=== PATIENT | female | born 1990 ===

== ENCOUNTER 2021-06-13 18:46 | Inpatient (IN) | payer OTHER ==
[2021-06-14 08:18] LABS: Basophils % (Auto) 0.3 % (0.0-1.8); Eosinophils # (Auto) 0.2 K/mm3 (0.0-0.4); Eosinophils % (Auto) 1.7 % (0.0-4.3); Hematocrit 34.9 % (30.3-42.9); Hemoglobin 11.9 gm/dl (10.1-14.3); Lymphocytes # (Auto) 2.3 K/mm3 (1.2-5.4); Lymphocytes % (Auto) 22.9 % (13.4-35.0); Mean Corpuscular HGB Conc 34 % (30-34); Mean Corpuscular Volume 88 fl (79-97); Monocytes # (Auto) 0.6 K/mm3 (0.0-0.8); Monocytes % (Auto) 5.8 % (0.0-7.3); Platelet Count 343 K/mm3 (140-440); Red Blood Count 3.96 M/mm3 (3.65-5.03)
--- NOTE | 2021-06-14 08:20 | Emergency Department Report ---
HPI - General Chief Complaint: High BP Time Seen by Provider: 06/14/21 08:17 - HPI HPI: 31-year-old -Luxembourger female presents to the emergency department with a complaint of elevated blood pressure, dizziness, and concerns for preeclampsia. She is currently [address] Judd. Yesterday, the patient was taking a shower when she got very dizzy and felt like she was going to pass out. She checked her blood pressure at that time and it was about 189/90. Patient also complains of a mild generalized headache. It was slightly worse prior to presentation but she took some Tylenol and that improved. The dizziness has since resolved. The patient had some lower extremity swelling yesterday but that also has improved. She denies any chest pain, shortness of breath, vision change, slurred speech, numbness or paresthesias. She has a history of -induced hypertension for which she is on labetalol and taking it compliantly. She says that she does have a history of preeclampsia from a previous in which she gave at 35 weeks. After the patient had the near syncope and hypertension yesterday, she called Dr. Judd's nurse line and was told to come to the emergency department for evaluation. ED Past Medical Hx - Past Medical History Previous Medical History?: Yes Hx Hypertension: Yes Hx Diabetes: Yes - Surgical History Past Surgical History?: Yes Additional Surgical History: ED Review of Systems ROS: Stated complaint: 19WKS /HPB Other details as noted in HPI Comment: All other systems reviewed and negative Constitutional: denies: chills, fever Eyes: denies: eye pain, vision change ENT: denies: ear pain, throat pain Respiratory: denies: cough, shortness of breath Cardiovascular: edema (Lower extremity, resolved). denies: chest pain, palpitations Gastrointestinal: denies: abdominal pain, vomiting Genitourinary: denies: dysuria, discharge Musculoskeletal: denies: back pain, arthralgia Skin: denies: rash, lesions Neurological: headache, other (Dizziness/lightheadedness). denies: numbness, paresthesias Physical Exam - Physical Exam Vital Signs: Vital Signs 06/13/21 06/14/21 06/14/21 19:09 08:13 08:14 Temperature 99.0 F 98 F Pulse Rate 103 H 95 H Respiratory 18 18 Rate Blood Pressure 142/84 148/97 [Right] O2 Sat by Pulse 97 98 98 Oximetry Physical Exam: GENERAL: The patient is well-developed well-nourished. HENT: Normocephalic. Atraumatic. Patient has moist mucous membranes. EYES: Extraocular motions are intact. No nystagmus. NECK: Supple. Trachea is midline. CHEST/LUNGS: Clear to auscultation. There is no respiratory distress noted. HEART/CARDIOVASCULAR: Regular. There is no tachycardia. There is no murmur. ABDOMEN: Abdomen is soft, nontender. Patient has normal bowel sounds. Obese habitus. SKIN: Skin is warm and dry. NEURO: The patient is awake, alert, and oriented. The patient is cooperative. The patient has no focal neurologic deficits. Normal speech. Cranial nerves II through XII grossly intact. No facial asymmetry. No pronator drift or dysmetria. MUSCULOSKELETAL: There is no tenderness or deformity. There is no limitation range of motion. ED Course Vital Signs 06/13/21 06/14/21 06/14/21 19:09 08:13 08:14 Temperature 99.0 F 98 F Pulse Rate 103 H 95 H Respiratory 18 18 Rate Blood Pressure 142/84 148/97 [Right] O2 Sat by Pulse 97 98 98 Oximetry ED Medical Decision Making - Lab Data Result diagrams: 06/14/21 07:52 06/14/21 07:52 Lab Results 06/14/21 06/14/21 06/14/21 Range/Units 05:16 07:52 07:52 WBC 9.9 (4.5-11.0) K/mm3 RBC 3.96 (3.65-5.03) M/mm3 Hgb 11.9 (10.1-14.3) gm/dl Hct 34.9 (30.3-42.9) % MCV 88 (79-97) fl MCH 30 (28-32) pg MCHC 34 (30-34) % RDW 13.0 L (13.2-15.2) % Plt Count 343 (140-440) K/mm3 Lymph % (Auto) 22.9 (13.4-35.0) % [place] % (Auto) 5.8 (0.0-7.3) % Eos % (Auto) 1.7 (0.0-4.3) % Baso % (Auto) 0.3 (0.0-1.8) % Lymph # (Auto) 2.3 (1.2-5.4) K/mm3 [place] # (Auto) 0.6 (0.0-0.8) K/mm3 Eos # (Auto) 0.2 (0.0-0.4) K/mm3 Baso # (Auto) 0.0 (0.0-0.1) K/mm3 Seg Neutrophils % 69.3 (40.0-70.0) % Seg Neutrophils # 6.9 (1.8-7.7) K/mm3 Sodium 134 L (137-145) mmol/L Potassium 4.2 (3.6-5.0) mmol/L Chloride 99.5 (98-107) mmol/L Carbon Dioxide 24 (22-30) mmol/L Anion Gap 15 mmol/L BUN 6 L (7-17) mg/dL Creatinine 0.4 L (0.6-1.2) mg/dL Estimated GFR > 60 ml/min BUN/Creatinine Ratio 15 % Glucose 110 H (65-100) mg/dL POC Glucose 74 (70-105) mg/dL Calcium 10.2 (8.4-10.2) mg/dL Magnesium 1.90 (1.7-2.3) mg/dL Total Bilirubin < 0.20 (0.1-1.2) mg/dL AST 14 (5-40) units/L ALT 10 (7-56) units/L Alkaline Phosphatase 51 (35-129) units/L Total Protein 7.5 (6.3-8.2) g/dL Albumin 3.9 (3.9-5) g/dL Albumin/Globulin Ratio 1.1 % - Medical Decision Making This patient is 20 weeks and presented with some dizziness/lightheadedness and hypertension. She has a previous history of preeclampsia and has -induced hypertension. Patient's labs have thus far been unremarkable. Patient's vital signs show some very mild hypertension but there is still hypertension despite her being compliant with her labetalol. I spoke with Dr. Ferris, on-call TECHNOLOGY AUDITOR for [employer]IT APPLICATION SUPPORT ANALYST and she has accepted the patient for admission to L&D for further monitoring. Critical Care Time: No Critical care attestation.: If time is entered above; I have spent that time in minutes in the direct care of this critically ill patient, excluding procedure time. ED Disposition Clinical Impression: Preeclampsia Qualifiers: Trimester: second trimester Qualified Code(s): O14.92 - Unspecified pre- eclampsia, second trimester induced hypertension Qualifiers: Trimester: second trimester Qualified Code(s): O13.2 - Gestational [- induced] hypertension without significant proteinuria, second trimester Disposition: 09 ADMITTED INPATIENT Is pt being admited?: Yes Condition: Fair Time of Disposition: 09:21
[2021-06-14 08:32] LABS: Alanine Aminotransferase 10 units/L (7-56); Albumin 3.9 g/dL (3.9-5); Blood Urea Nitrogen 6 mg/dL (7-17); Calcium 10.2 mg/dL (8.4-10.2); Hemolysis Index 4
[2021-06-14 08:35] LABS: BUN/Creatinine Ratio 15
[2021-06-14] MEDS ORDERED: ONDANSETRON 4 MG/2 ML INJ IV PRN (10:00)
[2021-06-14] MEDS ORDERED: ACETAMINOPHEN 325 MG TAB PO PRN (10:00)
[2021-06-14] MEDS ORDERED: DEXTROSE 50% IN WATER (25GM) 50 ML SYRINGE IV PRN (10:00)
[2021-06-14] MEDS ORDERED: LACTATED RINGERS 1,000 ML IV SCH (10:00)
[2021-06-14] MEDS ORDERED: diphenhydrAMINE 25 MG CAP PO PRN (10:00)
[2021-06-14] MEDS: PRENATAL VIT27-FE FUMARATE-FOLIC ACID VIT TAB PO SCH (10:00)
[2021-06-14] MEDS ORDERED: DOCUSATE SODIUM 100 MG CAP PO PRN (10:00)
--- NOTE | 2021-06-14 10:23 | History and Physical Report ---
History of Present Illness Date of examination: 06/14/21 Date of admission: 06/14/21 09:33 Chief complaint: ER HPI: 31-year-old -Citizen Of [place] female presents to the emergency department with a complaint of elevated blood pressure, dizziness, and concerns for preeclampsia. She is currently [address] Judd. Yesterday, the patient was taking a shower when she got very dizzy and felt like she was going to pass out. She checked her blood pressure at that time and it was about 189/90. Patient also complains of a mild generalized headache. It was slightly worse prior to presentation but she took some Tylenol and that improved. The dizziness has since resolved. The patient had some lower extremity swelling yesterday but that also has improved. She denies any chest pain, shortness of breath, vision change, slurred speech, numbness or paresthesias. She has a history of -induced hypertension for which she is on labetalol and taking it compliantly. She says that she does have a history of preeclampsia from a previous in which she gave at 35 weeks. History of present illness: EDC: 11/01/2021 Past History : 3 Term Births: 0 Premature Births: 1 Living Children: 1 Para: 1 Mult. Births: 0 Prev : 1 Prev. attempt? 0 Aborta: 1 Elect. Ab: 1 Spont. Ab: 0 Ectopics: 0 # 1 Delivery date: 2012 Weeks Gestation: 35 Delivery type: Hours of labor: failed IOL Anesthesia type: epidural Delivery location: [facility] Sex: Female weight: 5-0 Name: Yenny Comments: Pt had PreE and GDM with this ; C/S was for failed IOL # 2 Delivery date: 2018 Weeks Gestation: 10 Delivery type: EAB Comments: denies complications Past Medical History: morbid obesity Diabetes dx 2019 on Metformin 500mg TID Gestational Diabetes 2013 Hypertension essential started on Labetalol 200 BID Past Surgical History: 2013 Past Medical History Diabetes: yes Surgery (Non-senior software engineering manager): 2012 Social Hx: Patient is single debut age 16 0r 17. partners. x 2. condoms with one partner. did not get gardisil. Infection History Hx of STD: gonorrhea HIV Risk Eval: no Personal hx. of genital herpes: no Partner hx. of genital herpes: no Rash, Viral, or Febrile illness since last LMP? no Varicella/Chicken Pox Status: Unknown TB Risk: no Genetic History Congenital Heart Defect: Mom: no Dad: unknown Fior Disease: Mom: no Dad: unknown Thalassemia Mom: no Dad: unknown Neural Tube Defect Mom: no Dad: unknown Down's Syndrome Mom: no Dad: unknown Shekhar-Sachs Mom: no Dad: unknown Sickle Cell Disease/Trait Mom: no Dad: unknown Hemophilia Mom: no Dad: unknown Muscular Dystrophy Mom: no Dad: unknown Cystic Fibrosis Mom: no Dad: unknown [place] Chorea Mom: no Dad: unknown Mental Retardation Mom: no Dad: unknown Fragile X Mom: no Dad: unknown Other Genetic/Chromosomal Disorder Mom: no Dad: unknown Child w/other defect Mom: no Dad: unknown Enviromental Exposures Xray Exposure: no Medication, drug, or alcohol use since LMP: no Chemical/Other Exposure: no Exposure to Cat Liter: no Hx of Parvovirus (Fifth Disease): no Occupational Exposure to Children: none Active Medications (reviewed today): RX 1 TABS ( VIT-FE FUMARATE-FA TABS) one po q day LABETALOL HCL 200 MG TABS (LABETALOL HCL) () 1 po bid PROCARE WRIST BP MONITOR DEVICE (BLOOD PRESSURE MONITORING) pt instructed to take BP BID Call with values >160/100 PNV () METFORMIN () Current Allergies (reviewed today): No known allergies Past History Past Medical History: other (see HPI) Past Surgical History: other (see HPI) 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) Family/Genetic History: other (see HPI) Social history: other (see HPI) - Obstetrical History Expected Date of Delivery: 11/01/21 Actual Gestation: 20 Week(s) 0 Day(s) : 3 Para: 1 Hx # Term Pregnancies: 0 Number of Pregnancies: 1 Spontaneous Abortions: 0 Induced : 1 Number of Living Children: 1 Medications and Allergies Allergies Allergy/AdvReac Type Severity Reaction Status Date / Time No Known Allergies Allergy Unverified 06/13/21 19:07 Active Meds: Active Medications Acetaminophen (Acetaminophen 325 Mg Tab) 650 mg PO Q4H PRN PRN Reason: Pain MILD(1-3)/Fever >100.5/CUMMINGS Dextrose (Dextrose 50% In Water (25gm) 50 Ml Syringe) 50 ml IV Q30MIN PRN; Protocol PRN Reason: Hypoglycemia Diphenhydramine HCl (Diphenhydramine 25 Mg Cap) 25 mg PO Q6H PRN PRN Reason: Itching Docusate Sodium (Docusate Sodium 100 Mg Cap) 100 mg PO Q12H PRN PRN Reason: Constipation Lactated Ringer's (Lactated Ringers) 1,000 mls @ 125 mls/hr IV DIRECT LOC Insulin Human Regular (Insulin Regular, Human 100 Units/1 Ml) 0 units SUB-Q Q6H LOC; Protocol Multivitamins/Iron/Calcium ( Lrb70-Dt Fumarate-Folic Acid Vit Tab) 1 each PO QDAY LOC Ondansetron HCl (Ondansetron 4 Mg/2 Ml Inj) 4 mg IV Q6H PRN PRN Reason: Nausea And Vomiting Review of Systems All systems: negative - Vital Signs Vital signs: Vital Signs Temp Pulse Resp BP Pulse Ox 99.0 F 103 H 18 142/84 97 06/13/21 19:09 06/13/21 19:09 06/13/21 19:09 06/13/21 19:09 06/13/21 19:09 Temp Pulse Resp BP Pulse Ox 98 F 95 H 18 148/97 98 06/14/21 08:13 06/14/21 08:13 06/14/21 08:13 06/14/21 08:13 06/14/21 08:14 - Physical Exam Breasts: Positive: deferred Cardiovascular: Regular rate Lungs: Positive: Clear to auscultation, Normal air movement Abdomen: Positive: normal appearance, soft Vagina: Negative: discharge Uterus: Positive: normal size, normal contour. Negative: tender Extremities: Positive: edema (nonpitting) Deep Tendon Reflex Grade: Normal +2 - Obstetrical FHR comments: dopplers ordered qday; pt reports +FM Uterine Contraction Monitor Mode: External Uterine Contraction Pattern: Absent Uterine Tone Measurement Phase: Resting Results Result Diagrams: 06/14/21 07:52 06/14/21 07:52 Abnormal lab results 06/14/21 06/14/21 Range/Units 07:52 07:52 RDW 13.0 L (13.2-15.2) % Sodium 134 L (137-145) mmol/L BUN 6 L (7-17) mg/dL Creatinine 0.4 L (0.6-1.2) mg/dL Glucose 110 H (65-100) mg/dL All other labs normal. AFP screen: negative Tests: (1) Profile I ([id number]) Order Note: Clinical Information: SRC:UR HBsAg Screen Negative Negative *1 RPR Non Reactive Non Reactive *2 Rubella Antibodies, IgG 1.30 index Immune >0.99 *3 Non-immune <0.90 Equivocal 0.90 - 0.99 Immune >0.99 ABO Grouping O *4 Rh Factor Positive *5 Please note: Prior records for this patient's ABO / Rh type are not available for additional verification. Antibody Screen Negative Negative *6 WBC 7.8 x10E3/uL 3.4-10.8 *7 RBC 4.09 x10E6/uL 3.77-5.28 *8 Hemoglobin 12.1 g/dL 11.1-15.9 *9 Hematocrit 37.7 % 34.0-46.6 *10 MCV 92 fL 79-97 *11 MCH 29.6 pg 26.6-33.0 *12 MCHC 32.1 g/dL 31.5-35.7 *13 RDW 12.9 % 11.7-15.4 *14 Platelets 307 x10E3/uL 150-450 *15 Neutrophils 62 % Not Estab. *16 Lymphs 29 % Not Estab. *17 Monocytes 6 % Not Estab. *18 Eos 2 % Not Estab. *19 Basos 1 % Not Estab. *20 ! Immature Cells <No Reported Value> *21 Neutrophils (Absolute) 4.8 x10E3/uL 1.4-7.0 *22 Lymphs (Absolute) 2.3 x10E3/uL 0.7-3.1 *23 Monocytes(Absolute) 0.5 x10E3/uL 0.1-0.9 *24 Eos (Absolute) 0.2 x10E3/uL 0.0-0.4 *25 Baso (Absolute) 0.0 x10E3/uL 0.0-0.2 *26 ! Immature Granulocytes 0 % Not Estab. *27 ! Immature Grans (Abs) 0.0 x10E3/uL 0.0-0.1 *28 ! NRBC <No Reported Value> *29 Hematology Comments: <No Reported Value> *30 Tests: (2) HB Solu + Rflx [facility] ([id number]) Hemoglobin (Hgb) Solubility [A] Positive Negative *31 Verified by repeat analysis Tests: (3) Hgb Fractionation [place] ([id number]) ! Hgb F [H] 3.4 % 0.0-2.0 *32 ! Hgb A [L] 54.5 % 96.4-98.8 *33 ! Hgb A2 3.0 % 1.8-3.2 *34 ! Hgb S [H] 39.1 % 0.0 *35 ! Interpretation: SHIELA *36 Reflex to Hgb Solubility indicated for confirmation. Tests: (4) Hgb Solubility ([id number]) ! Hgb Solubility DUPPRG (X) *37 Duplicate procedure ordered. ! Final Interpretation: SBAS *38 Hemoglobin pattern and concentrations are consistent with sickle cell trait (heterozygous). Suggest clinical and hematologic correlation. Sickle Trait Interpretation Ranges Hgb A 50.0 - 70.0% Hgb S 30.0 - 45.0% Hgb A2 1.8 - 4.0% Tests: (5) HIV Ag/Ab with Reflex ([id number]) HIV Screen 4th Generation wRfx Non Reactive Non Reactive *39 Tests: (6) HCV Ab w/Rflx to Verification ([id number]) ! HCV Ab <0.1 s/co ratio 0.0-0.9 *40 Tests: (7) Comment: ([id number]) ! Comment: SPRCS *41 Non reactive HCV antibody screen is consistent with no HCV infection, unless recent infection is suspected or other evidence exists to indicate HCV infection. Effective April 29, 2021, this panel will be made non-orderable as it no longer meets clinical guidelines for the detection of HCV infection. [facility] offers HCV Antibody with reflex to Quantitative real-time PCR ([id number]) and HCV Antibody with reflex to Qualitative JEREMY ([id number]) which align with current guidelines. Tests: (8) Urine Culture, Routine ([id number]) Urine Culture, Routine Final report *42 Tests: (9) Result ([id number]) ! Result 1 "Result Below..." *43 RESULT: Lactobacillus species 10,000-25,000 colony forming units per mL Susceptibility not normally performed on this organism. Assessment and Plan Pt presents for admission from ED to r/o Pre-eclampsia. DR. Ferris aware. POC d/w pt and all questions and concerns addressed. Pt denies RUQ pain and vision changes, reports recent CUMMINGS resolved with Tylenol. Orders placed in EMR - Patient Problems (1) 20 weeks gestation of Current Visit: Yes Status: Acute Plan to address problem: Doppler FHT's every day (2) Maternal care for scar from previous delivery Current Visit: Yes Status: Acute (3) Type 2 diabetes mellitus during Current Visit: Yes Status: Acute Plan to address problem: Consistent carb diet ordered POC glucose fasting and 2 hours post prandial Sliding scale insulin per protocol Home medications ordered- Humulin N 40 units and Humulin R 22units with breakfast, Humulin N 18 units and Humulin R 18 units with dinner (4) Chronic hypertension affecting Current Visit: Yes Status: Acute Plan to address problem: Perform 24hour urine collection Monitor BP and SSx closely notify provider with any changes in status Strict I&O Obtain IV access and may saline lock if pt tolerating PO Labetalol 200mg BID (5) Sickle cell trait Current Visit: Yes Status: Acute
[2021-06-14 11:05] LABS: Bacteria,Urine 2+ /HPF (Negative); Bilirubin,Urine NEG (Negative); Blood,Urine NEG (Negative); Color,Urine Yellow (Yellow); Hyaline Casts,Urine 1 /LPF; Mucus,Urine FEW /HPF; Protein,Urine <15 mg/dL mg/dL (Negative); Urobilinogen,Urine < 2.0 mg/dL (<2.0)
[2021-06-14] MEDS ORDERED: metFORMIN 500 MG TAB PO SCH (13:21)
[2021-06-14] MEDS: INSULIN REGULAR, HUMAN 100 UNITS/1 ML SUB-Q SCH ×2 (16:00→18:13)
[2021-06-14] MEDS: ACETAMINOPHEN 500 MG TAB PO PRN (18:03)
[2021-06-15] MEDS: ACETAMINOPHEN 500 MG TAB PO PRN (00:29)
[2021-06-15] MEDS ORDERED: INSULIN NPH, HUMAN 100 UNIT/1 ML SUB-Q SCH (08:00)
--- NOTE | 2021-06-15 08:02 | Progress Note ---
Assessment and Plan Pt resting No c/o voiced BP 130-115/80-60 24hr urine collecting to be complete @ 1500. All questions addressed. D/C with results. Will confirm [facility] referral. Pt admits she may be stressed. Her father has colon CA and is having the muscle from his rectum removed soon. States her BP was only elevated that one time at home. 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 Onset Date: ~06/15/21 Current Visit: Yes Status: Acute Plan to address problem: Diet this AM Scheduled insulin Subjective - Subjective Date of service: 06/15/21 (pt in good spirits) Principal diagnosis: 20w DM, CHTN collecting 24hr urine Patient reports: movement normal Objective - Vital Signs Vital Signs: Vital Signs - 12hr 06/14/21 06/14/21 06/14/21 19:59 20:04 20:09 Temperature Pulse Rate 88 76 85 Respiratory Rate Blood Pressure O2 Sat by Pulse 98 99 99 Oximetry 06/14/21 06/14/21 06/14/21 20:13 20:14 20:19 Temperature Pulse Rate 75 81 88 Respiratory Rate Blood Pressure 131/58 O2 Sat by Pulse 99 99 Oximetry 06/14/21 06/14/21 06/14/21 20:24 20:29 20:34 Temperature Pulse Rate 82 89 86 Respiratory Rate Blood Pressure O2 Sat by Pulse 98 99 99 Oximetry 06/14/21 06/14/21 06/14/21 20:39 20:44 20:49 Temperature Pulse Rate 88 81 83 Respiratory Rate Blood Pressure O2 Sat by Pulse 99 99 99 Oximetry 06/14/21 06/14/21 06/14/21 20:54 20:59 21:04 Temperature Pulse Rate 86 78 88 Respiratory Rate Blood Pressure O2 Sat by Pulse 98 99 99 Oximetry 06/14/21 06/14/21 06/14/21 21:09 21:13 21:21 Temperature Pulse Rate 98 H 90 99 H Respiratory Rate Blood Pressure 132/63 O2 Sat by Pulse 98 98 Oximetry 06/14/21 06/14/21 06/14/21 21:26 21:31 21:36 Temperature Pulse Rate 98 H 80 93 H Respiratory Rate Blood Pressure O2 Sat by Pulse 99 98 99 Oximetry 06/14/21 06/14/21 06/14/21 21:41 21:46 21:51 Temperature Pulse Rate 82 77 81 Respiratory Rate Blood Pressure O2 Sat by Pulse 99 99 99 Oximetry 06/14/21 06/14/21 06/14/21 21:56 22:01 22:06 Temperature Pulse Rate 83 84 95 H Respiratory Rate Blood Pressure 114/56 O2 Sat by Pulse 100 99 100 Oximetry 06/14/21 06/14/21 06/14/21 22:07 22:11 22:12 Temperature Pulse Rate 77 81 78 Respiratory Rate Blood Pressure 114/56 117/57 O2 Sat by Pulse 99 Oximetry 06/14/21 06/14/21 06/14/21 22:16 22:21 22:26 Temperature Pulse Rate 79 87 89 Respiratory Rate Blood Pressure O2 Sat by Pulse 99 99 99 Oximetry 06/14/21 06/14/21 06/14/21 22:31 22:36 22:41 Temperature Pulse Rate 76 85 77 Respiratory Rate Blood Pressure O2 Sat by Pulse 100 99 97 Oximetry 06/14/21 06/14/21 06/14/21 22:46 22:51 22:54 Temperature Pulse Rate 83 83 79 Respiratory Rate Blood Pressure O2 Sat by Pulse 97 96 94 Oximetry 06/14/21 06/14/21 06/14/21 22:56 23:01 23:06 Temperature Pulse Rate 90 89 89 Respiratory Rate Blood Pressure O2 Sat by Pulse 95 95 95 Oximetry 06/14/21 06/14/21 06/14/21 23:11 23:12 23:16 Temperature Pulse Rate 83 100 H 84 Respiratory Rate Blood Pressure 135/75 O2 Sat by Pulse 95 96 Oximetry 06/14/21 06/14/21 06/14/21 23:19 23:21 23:26 Temperature Pulse Rate 87 85 80 Respiratory Rate Blood Pressure O2 Sat by Pulse 94 96 98 Oximetry 06/14/21 06/14/21 06/14/21 23:31 23:32 23:36 Temperature Pulse Rate 78 88 95 H Respiratory Rate Blood Pressure O2 Sat by Pulse 97 94 93 Oximetry 06/14/21 06/14/21 06/14/21 23:38 23:41 23:46 Temperature Pulse Rate 98 H 108 H 85 Respiratory Rate Blood Pressure O2 Sat by Pulse 93 92 98 Oximetry 06/14/21 06/14/21 06/15/21 23:51 23:56 00:00 Temperature 98.3 F Pulse Rate 88 96 H Respiratory 18 Rate Blood Pressure O2 Sat by Pulse 99 99 Oximetry 06/15/21 06/15/21 06/15/21 00:01 00:06 00:11 Temperature Pulse Rate 93 H 80 83 Respiratory Rate Blood Pressure O2 Sat by Pulse 99 98 98 Oximetry 06/15/21 06/15/21 06/15/21 00:12 00:16 00:21 Temperature Pulse Rate 90 100 H 93 H Respiratory Rate Blood Pressure 124/71 O2 Sat by Pulse 98 100 Oximetry 06/15/21 06/15/21 06/15/21 00:26 00:29 00:31 Temperature Pulse Rate 96 H 95 H Respiratory 18 Rate Blood Pressure O2 Sat by Pulse 98 98 Oximetry 06/15/21 06/15/21 06/15/21 00:36 00:41 00:46 Temperature Pulse Rate 81 80 84 Respiratory Rate Blood Pressure O2 Sat by Pulse 98 97 98 Oximetry 06/15/21 06/15/21 06/15/21 00:49 00:51 00:55 Temperature Pulse Rate 78 76 86 Respiratory Rate Blood Pressure O2 Sat by Pulse 93 98 94 Oximetry 06/15/21 06/15/21 06/15/21 00:56 01:01 01:06 Temperature Pulse Rate 75 77 86 Respiratory Rate Blood Pressure O2 Sat by Pulse 98 96 98 Oximetry 06/15/21 06/15/21 06/15/21 01:07 01:11 01:16 Temperature Pulse Rate 80 78 83 Respiratory Rate Blood Pressure O2 Sat by Pulse 92 97 98 Oximetry 06/15/21 06/15/21 06/15/21 01:21 01:26 01:31 Temperature Pulse Rate 79 85 86 Respiratory Rate Blood Pressure O2 Sat by Pulse 97 99 99 Oximetry 06/15/21 06/15/21 06/15/21 01:36 01:41 01:46 Temperature Pulse Rate 82 81 86 Respiratory Rate Blood Pressure O2 Sat by Pulse 99 99 98 Oximetry 06/15/21 06/15/21 06/15/21 01:51 01:56 02:01 Temperature Pulse Rate 84 85 85 Respiratory Rate Blood Pressure O2 Sat by Pulse 99 98 98 Oximetry 06/15/21 06/15/21 06/15/21 02:06 02:11 02:12 Temperature Pulse Rate 80 88 78 Respiratory Rate Blood Pressure 106/52 O2 Sat by Pulse 98 98 Oximetry 06/15/21 06/15/21 06/15/21 02:16 02:21 02:26 Temperature Pulse Rate 81 89 103 H Respiratory Rate Blood Pressure O2 Sat by Pulse 99 98 98 Oximetry 06/15/21 06/15/21 06/15/21 02:31 02:36 02:41 Temperature Pulse Rate 87 85 75 Respiratory Rate Blood Pressure O2 Sat by Pulse 98 98 98 Oximetry 06/15/21 06/15/21 06/15/21 02:46 02:51 02:56 Temperature Pulse Rate 80 85 82 Respiratory Rate Blood Pressure O2 Sat by Pulse 98 98 98 Oximetry 06/15/21 06/15/21 06/15/21 03:01 03:06 03:11 Temperature Pulse Rate 85 77 79 Respiratory Rate Blood Pressure O2 Sat by Pulse 98 99 97 Oximetry 06/15/21 06/15/21 06/15/21 03:13 03:16 03:21 Temperature Pulse Rate 81 79 75 Respiratory Rate Blood Pressure 107/49 O2 Sat by Pulse 98 98 Oximetry 06/15/21 06/15/21 06/15/21 03:25 03:26 03:31 Temperature Pulse Rate 94 H 94 H 81 Respiratory Rate Blood Pressure O2 Sat by Pulse 90 98 98 Oximetry 06/15/21 06/15/21 06/15/21 03:36 03:41 03:46 Temperature Pulse Rate 82 82 79 Respiratory Rate Blood Pressure O2 Sat by Pulse 96 98 97 Oximetry 06/15/21 06/15/21 06/15/21 03:51 03:56 04:00 Temperature 98.4 F Pulse Rate 80 82 Respiratory 19 Rate Blood Pressure O2 Sat by Pulse 96 96 Oximetry 06/15/21 06/15/21 06/15/21 04:01 04:06 04:11 Temperature Pulse Rate 83 78 89 Respiratory Rate Blood Pressure O2 Sat by Pulse 98 98 98 Oximetry 06/15/21 06/15/21 06/15/21 04:13 04:14 04:16 Temperature Pulse Rate 86 85 90 Respiratory Rate Blood Pressure 107/51 O2 Sat by Pulse 93 88 Oximetry 06/15/21 06/15/21 06/15/21 04:19 04:21 04:25 Temperature Pulse Rate 86 81 99 H Respiratory Rate Blood Pressure O2 Sat by Pulse 88 96 90 Oximetry 06/15/21 06/15/21 06/15/21 04:26 04:31 04:36 Temperature Pulse Rate 83 90 90 Respiratory Rate Blood Pressure O2 Sat by Pulse 96 91 94 Oximetry 06/15/21 06/15/21 06/15/21 04:41 04:42 04:46 Temperature Pulse Rate 94 H 89 93 H Respiratory Rate Blood Pressure O2 Sat by Pulse 94 94 96 Oximetry 06/15/21 06/15/21 06/15/21 04:50 04:51 04:56 Temperature Pulse Rate 90 100 H 85 Respiratory Rate Blood Pressure O2 Sat by Pulse 94 98 98 Oximetry 06/15/21 06/15/21 06/15/21 05:01 05:06 05:11 Temperature Pulse Rate 86 82 81 Respiratory Rate Blood Pressure O2 Sat by Pulse 98 98 98 Oximetry 06/15/21 06/15/21 06/15/21 05:12 05:16 05:21 Temperature Pulse Rate 81 76 77 Respiratory Rate Blood Pressure 95/50 O2 Sat by Pulse 94 97 Oximetry 06/15/21 06/15/21 06/15/21 05:26 05:31 05:36 Temperature Pulse Rate 83 91 H 76 Respiratory Rate Blood Pressure O2 Sat by Pulse 96 98 97 Oximetry 06/15/21 06/15/21 06/15/21 05:41 05:46 05:51 Temperature Pulse Rate 80 80 85 Respiratory Rate Blood Pressure O2 Sat by Pulse 96 96 95 Oximetry 06/15/21 06/15/21 06/15/21 05:56 06:01 06:06 Temperature Pulse Rate 82 84 89 Respiratory Rate Blood Pressure O2 Sat by Pulse 96 95 96 Oximetry 06/15/21 06/15/21 06/15/21 06:11 06:12 06:15 Temperature Pulse Rate 82 81 87 Respiratory Rate Blood Pressure 115/57 O2 Sat by Pulse 96 92 Oximetry 06/15/21 06/15/21 06/15/21 06:16 06:21 06:26 Temperature Pulse Rate 101 H 96 H 86 Respiratory Rate Blood Pressure O2 Sat by Pulse 93 97 97 Oximetry 06/15/21 06/15/21 06/15/21 06:31 06:36 06:41 Temperature Pulse Rate 88 89 88 Respiratory Rate Blood Pressure O2 Sat by Pulse 97 98 98 Oximetry 08/06/15/21 06/15/21 06:46 06:51 06:56 Temperature Pulse Rate 85 82 97 H Respiratory Rate Blood Pressure O2 Sat by Pulse 98 98 99 Oximetry 06/15/21 06/15/21 06/15/21 07:14 07:19 07:24 Temperature Pulse Rate 101 H 88 84 Respiratory Rate Blood Pressure O2 Sat by Pulse 98 97 97 Oximetry 06/15/21 06/15/21 06/15/21 07:29 07:34 07:39 Temperature Pulse Rate 88 91 H 94 H Respiratory Rate Blood Pressure O2 Sat by Pulse 98 98 98 Oximetry 06/15/21 06/15/21 06/15/21 07:44 07:49 07:54 Temperature Pulse Rate 96 H 93 H 76 Respiratory Rate Blood Pressure O2 Sat by Pulse 97 97 97 Oximetry - Exam Breasts: deferred Cardiovascular: Regular rate Lungs: Clear to auscultation Abdomen: Present: normal appearance, soft. Absent: distention, tenderness Uterus: Present: normal FHR: auscultation normal Uterine Contraction Monitor Mode: External Uterine Contraction Pattern: Absent Extremities: normal Deep Tendon Reflex Grade: Absent 0 - Labs Labs: Abnormal Labs 06/14/21 06/14/21 06/14/21 07:52 07:52 08:27 RDW 13.0 L Sodium 134 L BUN 6 L Creatinine 0.4 L Glucose 110 H POC Glucose U Epithel Cells (Auto) 14.0 H 06/14/21 06/15/21 20:26 05:30 RDW Sodium BUN Creatinine Glucose POC Glucose 145 H 114 H U Epithel Cells (Auto) Laboratory Results - last 24 hr 06/14/21 06/14/21 06/14/21 05:16 07:52 07:52 WBC 9.9 RBC 3.96 Hgb 11.9 Hct 34.9 MCV 88 MCH 30 MCHC 34 RDW 13.0 L Plt Count 343 Lymph % (Auto) 22.9 [place] % (Auto) 5.8 Eos % (Auto) 1.7 Baso % (Auto) 0.3 Lymph # (Auto) 2.3 [place] # (Auto) 0.6 Eos # (Auto) 0.2 Baso # (Auto) 0.0 Seg Neutrophils % 69.3 Seg Neutrophils # 6.9 Sodium 134 L Potassium 4.2 Chloride 99.5 Carbon Dioxide 24 Anion Gap 15 BUN 6 L Creatinine 0.4 L Estimated GFR > 60 BUN/Creatinine Ratio 15 Glucose 110 H POC Glucose 74 Hemoglobin A1c Calcium 10.2 Magnesium 1.90 Total Bilirubin < 0.20 AST 14 ALT 10 Alkaline Phosphatase 51 Total Protein 7.5 Albumin 3.9 Albumin/Globulin Ratio 1.1 Urine Color Urine Turbidity Urine pH Ur Specific [place] Urine Protein Urine Glucose (UA) Urine Ketones Urine Blood Urine Nitrite Urine Bilirubin Urine Urobilinogen Ur Leukocyte Esterase Urine WBC (Auto) Urine RBC (Auto) U Epithel Cells (Auto) Urine Bacteria (Auto) Hyaline Casts Urine Mucus Blood Type Antibody Screen 06/14/21 06/14/21 06/14/21 08:27 10:00 10:00 WBC RBC Hgb Hct MCV MCH MCHC RDW Plt Count Lymph % (Auto) [place] % (Auto) Eos % (Auto) Baso % (Auto) Lymph # (Auto) [place] # (Auto) Eos # (Auto) Baso # (Auto) Seg Neutrophils % Seg Neutrophils # Sodium Potassium Chloride Carbon Dioxide Anion Gap BUN Creatinine Estimated GFR BUN/Creatinine Ratio Glucose POC Glucose Hemoglobin A1c 5.8 Calcium Magnesium Total Bilirubin AST ALT Alkaline Phosphatase Total Protein Albumin Albumin/Globulin Ratio Urine Color Yellow Urine Turbidity Hazy Urine pH 5.0 Ur Specific [place] 1.020 Urine Protein <15 mg/dl Urine Glucose (UA) Neg Urine Ketones Neg Urine Blood Neg Urine Nitrite Neg Urine Bilirubin Neg Urine Urobilinogen < 2.0 Ur Leukocyte Esterase Neg Urine WBC (Auto) 4.0 Urine RBC (Auto) 2.0 U Epithel Cells (Auto) 14.0 H Urine Bacteria (Auto) 2+ Hyaline Casts 1 Urine Mucus Few Blood Type O POSITIVE Antibody Screen Negative 06/14/21 06/15/21 20:26 05:30 WBC RBC Hgb Hct MCV MCH MCHC RDW Plt Count Lymph % (Auto) [place] % (Auto) Eos % (Auto) Baso % (Auto) Lymph # (Auto) [place] # (Auto) Eos # (Auto) Baso # (Auto) Seg Neutrophils % Seg Neutrophils # Sodium Potassium Chloride Carbon Dioxide Anion Gap BUN Creatinine Estimated GFR BUN/Creatinine Ratio Glucose POC Glucose 145 H 114 H Hemoglobin A1c Calcium Magnesium Total Bilirubin AST ALT Alkaline Phosphatase Total Protein Albumin Albumin/Globulin Ratio Urine Color Urine Turbidity Urine pH Ur Specific [place] Urine Protein Urine Glucose (UA) Urine Ketones Urine Blood Urine Nitrite Urine Bilirubin Urine Urobilinogen Ur Leukocyte Esterase Urine WBC (Auto) Urine RBC (Auto) U Epithel Cells (Auto) Urine Bacteria (Auto) Hyaline Casts Urine Mucus Blood Type Antibody Screen
[2021-06-15] MEDS: PRENATAL VIT27-FE FUMARATE-FOLIC ACID VIT TAB PO SCH (09:40)
[2021-06-15] MEDS: INSULIN REGULAR, HUMAN 100 UNITS/1 ML SUB-Q SCH ×3 (10:46→11:30)
[2021-06-15 16:13] VITALS: BP 116/58
--- NOTE | 2021-06-15 16:27 | Discharge Summary ---
Providers - Providers Date of Admission: 06/14/21 09:33 Date of discharge: 06/15/21 (Pt may go ) Attending physician: JUNIOR RUVALCABA Primary care physician: JUNIOR RUVALCABA Hospitalization Reason for admission: other (elevated BP collect 24hr urine) Hospital course: uncomplicated [facility] admission. 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 * Keep incision clean and dry at all times and follow doctor's instructions regarding bathing/showering - Follow up plan Follow up: JUNIOR RUVALCABA MD [Primary Care Provider] - 06/24/21 4:00 pm (Keep appointment with [facility],[phone], on 06-24-21 @ 1600 in [employer] [place] office Call [phone] to schedule appoinment with [facility] in 2 weeks. Call with any concerns Take medications as prescribed)
== END 2021-06-15 18:20 | disposition home or self-care (01) | DRG 781 ==
LOC: ED 18:46 → OBSVTOIN 06-14 09:33 → OB 06-14 09:33 → LD 06-14 15:58
PROVIDERS: ADMIT Obstetrics & Gynecology; ATTEND Obstetrics & Gynecology
DX: O10.012 Pre-existing essential hypertension complicating pregnancy, second trimester (principal); O24.414 Gestational diabetes mellitus in pregnancy, insulin controlled; O99.012 Anemia complicating pregnancy, second trimester; D57.1 Sickle-cell disease without crisis; Z3A.20 20 weeks gestation of pregnancy; Z98.891 History of uterine scar from previous surgery
CPT/HCPCS: 36415; 80053; 81001; 82962; 83036; 83735; 84156; 85025; 86850; 86900; 86901; 96374; G0378

== ENCOUNTER 2021-08-27 16:37 | Outpatient (CLI) | payer OTHER ==
[2021-08-27] MEDS ORDERED: LACTATED RINGERS 500 ML IV ONE (17:27)
[2021-08-27 18:21] VITALS: BP 133/62
--- NOTE | 2021-08-27 19:03 | Ultrasound Report ---
US OB limited INDICATION / CLINICAL INFORMATION: HEART TONE. COMPARISON: None available. FINDINGS: lie is cephalic. Heart rate is 137. Signer Name: Harmeet Todd MD Signed: 08/27/2021 6:58 PM Workstation Name: [email or web address]
[2021-08-27 20:25] LABS: Bacteria,Urine 1+ /HPF (Negative); Bilirubin,Urine NEG (Negative); Blood,Urine NEG (Negative); Color,Urine Yellow (Yellow); Mucus,Urine FEW /HPF; Protein,Urine <15 mg/dL mg/dL (Negative); Urobilinogen,Urine < 2.0 mg/dL (<2.0)
== END 2021-08-27 20:15 | disposition home or self-care (01) ==
LOC: TRG 16:37 → APU 16:38 → TRG 20:15
PROVIDERS: ATTEND Obstetrics & Gynecology
DX: Z34.93 Encounter for supervision of normal pregnancy, unspecified, third trimester (principal); Z3A.30 30 weeks gestation of pregnancy
CPT/HCPCS: 59025; 76815; 76819; 81001

== ENCOUNTER 2021-09-28 14:07 | Outpatient (CLI) | payer OTHER ==
[2021-09-28 16:47] VITALS: BP 143/76
--- NOTE | 2021-09-29 07:59 | Ultrasound Report ---
ULTRASOUND BIOPHYSICAL PROFILE INDICATION: wellbeing. COMPARISON: None available. FINDINGS: heart rate is 161 beats per minute. breathing movement = 2 Gross body movement = 2 tone = 2 Qualitative amniotic fluid volume = 2 IMPRESSION: biophysical profile = 06/06 Signer Name: Dada Nunn Jr, MD Signed: 09/28/2021 6:21 PM Workstation Name: [id number]
== END 2021-09-28 17:02 | disposition home or self-care (01) ==
LOC: TRG 14:07 → APU 14:08 → TRG 17:02
PROVIDERS: ATTEND Obstetrics & Gynecology
DX: Z34.93 Encounter for supervision of normal pregnancy, unspecified, third trimester (principal); Z3A.35 35 weeks gestation of pregnancy
CPT/HCPCS: 59025; 76819

== ENCOUNTER 2021-10-04 11:23 | Emergency (ER) | payer OTHER ==
[2021-10-04] MEDS ORDERED: ACETAMINOPHEN 500 MG TAB PO ONE (12:17)
--- NOTE | 2021-10-04 12:20 | Emergency Department Report ---
ED Chest Pain HPI - General Chief Complaint: Chest Pain Stated Complaint: chest pain Time Seen by Provider: 10/04/21 11:47 Source: patient Mode of arrival: Wheelchair Limitations: No Limitations - History of Present Illness Initial Comments: 31-year-old female currently 36 weeks with a past medical history of hypertension and diabetes currently on insulin presents to the hospital for evaluation for chest pain since 5 AM. Patient was cleared by labor and delivery prior to ED transfer. Patient has been experiencing pleuritic substernal chest pain since 5 AM. Symptoms worse with inhalation and movement. Patient for short of breath due to hesitation to take a deep breath. Patient has been using her mother's inhaler without improvement. She denies calf tenderness, leg edema, history of PE/DVT, or smoking. This is her third . Positive history of preeclampsia without no history of cardiac issues. Severity scale (0 -10): 4 - Related Data Home Medications Medication Instructions Recorded Confirmed Last Taken Insulin NPH, Human [NovoLIN N] 24 unit SQ QPM 10/04/21 10/04/21 1 Day Ago ~10/03/21 18 Insulin NPH, Human [NovoLIN N] 40 unit SQ QAM 10/04/21 10/04/21 1 Day Ago ~10/03/21 40 Insulin Regular, Human [Humulin R] 18 unit SQ QPM 10/04/21 10/04/21 1 Day Ago ~10/03/21 18 Insulin Regular, Human [Humulin R] 22 unit SQ QAM 10/04/21 10/04/21 1 Day Ago ~10/03/21 22 Vitamin 1 tab PO DAILY 10/04/21 10/04/21 1 Day Ago ~10/03/21 1 labetaloL [Labetalol 200mg TAB] 200 mg PO BID 10/04/21 10/04/21 1 Day Ago ~10/03/21 200 Allergies Allergy/AdvReac Type Severity Reaction Status Date / Time No Known Allergies Allergy Verified 10/04/21 09:00 Heart Score - HEART Score History: Slightly suspicious EKG: Normal Age: < 45 Risk factors: 1-2 risk factors Troponin: < normal limit HEART Score: 1 - EKG Read Time Time EKG Completed: 11:44 EKG Read Time: 11:49 ED Review of Systems ROS: Stated complaint: chest pain Other details as noted in HPI Comment: All other systems reviewed and negative ED Past Medical Hx - Past Medical History Hx Hypertension: Yes (GHTN) Hx Congestive Heart Failure: No Hx Diabetes: Yes (current and GDM) Hx Deep Vein Thrombosis: No Hx Renal Disease: No Hx Sickle Cell Disease: No Hx Seizures: No Hx Asthma: No Hx COPD: No Hx HIV: No - Surgical History Past Surgical History?: Yes Additional Surgical History: , - Social History Smoking Status: Former Smoker - Medications Home Medications: Home Medications Medication Instructions Recorded Confirmed Last Taken Type Insulin NPH, Human [NovoLIN N] 24 unit SQ QPM 10/04/21 10/04/21 1 Day Ago History ~10/03/21 18 Insulin NPH, Human [NovoLIN N] 40 unit SQ QAM 10/04/21 10/04/21 1 Day Ago History ~10/03/21 40 Insulin Regular, Human [Humulin R] 18 unit SQ QPM 10/04/21 10/04/21 1 Day Ago History ~10/03/21 18 Insulin Regular, Human [Humulin R] 22 unit SQ QAM 10/04/21 10/04/21 1 Day Ago History ~10/03/21 22 Vitamin 1 tab PO DAILY 10/04/21 10/04/21 1 Day Ago History ~10/03/21 1 labetaloL [Labetalol 200mg TAB] 200 mg PO BID 10/04/21 10/04/21 1 Day Ago History ~10/03/21 200 ED Physical Exam - General Limitations: No Limitations - Other Other exam information: General: No acute distress Head: Atraumatic Eyes: normal appearance ENT: Moist mucous membranes Neck: Normal appearance, no midline tenderness Chest: Clear to auscultation bilaterally, no wheezes. Anterior chest wall nontender CV: Regular rate and rhythm Abdomen: Soft, normal bowel sounds, gravid abdomen, nontender Back: Normal inspection Extremity: Normal inspection, full range of motion Neuro: Alert O x 3, no facial asymmetry, speech clear, no gross motor sensory deficit Psych: Appropriate behavior Skin: No rash ED Course Vital Signs 10/04/21 10/04/21 10/04/21 11:24 11:31 12:13 Temperature 98.2 F Pulse Rate 89 88 Respiratory 15 23 Rate Blood Pressure 111/54 138/87 [Right] O2 Sat by Pulse 99 99 99 Oximetry 12/06/21 12:34 Temperature Pulse Rate Respiratory 18 Rate Blood Pressure [Right] O2 Sat by Pulse Oximetry ED Medical Decision Making - Lab Data Result diagrams: 10/04/21 11:47 10/04/21 11:47 - EKG Data -: EKG Interpreted by Me EKG shows normal: sinus rhythm, intervals (intervals normal), QRS complexes (qrsd 86), ST-T waves (No STEMI) Rate: normal (88) - Radiology Data Radiology results: report reviewed CT angio chest: No CT evidence of pulmonary embolism. Cholelithiasis incompletely visualized - Medical Decision Making 31-year-old 36-week female complaining upper substernal chest pain worse with movement and inspiration. No signs of hypoxia or tachycardia. No clinical findings of DVT. EKG normal sinus rhythm without ischemia. Labs unremarkable including cardiac enzymes. CT angiogram negative for pulmonary embolism. Incidental finding cholelithiasis without physical exam or laboratory findings of cholecystitis. Patient treated with Tylenol. Patient be disc harged with outpatient follow-up Critical Care Time: No Critical care attestation.: If time is entered above; I have spent that time in minutes in the direct care of this critically ill patient, excluding procedure time. ED Disposition Clinical Impression: Costochondritis, acute, Cholelithiasis Disposition: HOME / SELF CARE / HOMELESS Is pt being admited?: No Does the pt Need Aspirin: No Condition: Stable Instructions: Costochondritis, [id number], Cholelithiasis Additional Instructions: Take Tylenol as needed for pain. Follow-up with your doctor or doctor/clinic provided. Return if symptoms worsen as indicated by your discharge instructio ns. Referrals: PRIMARY CARE, [Primary Care Provider] - 3-5 Days
[2021-10-04 12:23] LABS: Basophils % (Auto) 0.3 % (0.0-1.8); Eosinophils % (Auto) 0.4 % (0.0-4.3); Hematocrit 35.1 % (30.3-42.9); Hemoglobin 11.5 gm/dl (10.1-14.3); Lymphocytes # (Auto) 1.3 K/mm3 (1.2-5.4); Lymphocytes % (Auto) 14.9 % (13.4-35.0); Mean Corpuscular HGB Conc 33 % (30-34); Mean Corpuscular Volume 86 fl (79-97); Monocytes # (Auto) 0.5 K/mm3 (0.0-0.8); Monocytes % (Auto) 6.1 % (0.0-7.3); Platelet Count 230 K/mm3 (140-440); Red Blood Count 4.07 M/mm3 (3.65-5.03); Red Cell Distribution Width 14.6 % (13.2-15.2)
[2021-10-04 12:37] LABS: Alanine Aminotransferase 10 units/L (7-56); Albumin 3.1 g/dL (3.9-5); Blood Urea Nitrogen 8 mg/dL (7-17); Calcium 8.9 mg/dL (8.4-10.2); Hemolysis Index 4
[2021-10-04 12:38] LABS: BUN/Creatinine Ratio 16
--- NOTE | 2021-10-04 14:03 | Cat Scan Report ---
CTA CHEST WITH IV CONTRAST INDICATION: pleuritic chest pain 36wk . Omni 350 80cc. . TECHNIQUE: Axial CT images were obtained through the chest after injection of IV contrast. 3 plane MIP reconstru ctions were produced. All CT scans at this location are performed using CT dose reduction for ALARA b y means of automated exposure control. COMPARISON: None available. FINDINGS: PULMONARY ARTERIES: No pulmonary emboli. THORACIC AORTA: No acute abnormality. HEART: Normal. CORONARY ARTERIES: No significant calcification. PLEURA: No pleural effusion. No pneumothorax. LYMPH NODES: No significant adenopathy. LUNGS: Linear atelectasis right upper and both lower lobes. ADDITIONAL FINDINGS: None. UPPER ABDOMEN: Calcified gallstone SKELETAL STRUCTURES: No significant osseous abnormality. IMPRESSION: 1. No CT evidence for pulmonary embolism. 2. Cholelithiasis, incompletely visualized Signer Name: Dameon Foreman MD Signed: 10/04/2021 1:59 PM Workstation Name: [id number]
[2021-10-04 14:57] LABS: Bacteria,Urine 1+ /HPF (Negative); Bilirubin,Urine NEG (Negative); Blood,Urine NEG (Negative); Color,Urine Yellow (Yellow); Protein,Urine <15 mg/dL mg/dL (Negative); Urobilinogen,Urine < 2.0 mg/dL (<2.0)
[2021-10-04 15:15] VITALS: BP 146/86
--- NOTE | 2021-10-07 10:00 | Electrocardiograph Report ---
[facility] Test Date: 2021-10-04 Test Time: 11:44:14 Pat Name: ROBERTO CARDOZA Department: Room: Gender: F Medical Aide: ADELA : 1990 Requested By: ANNETTA HENDRICKS Order Number: [id number] Reading MD: Kristopher Kenyon Measurements Intervals [place] Rate: 88 P: 21 NV: 145 QRS: 2 QRSD: 86 T: 13 QT: 354 QTc: 429 Interpretive Statements Sinus rhythm No previous ECG available for comparison Electronically Signed On 10-07-2021 10:00:02 EST by Kristopher Kenyon
== END 2021-10-04 15:26 | disposition home or self-care (01) ==
LOC: ED 11:23
DX: O26.893 Other specified pregnancy related conditions, third trimester (principal); M94.0 Chondrocostal junction syndrome [Tietze]; K80.20 Calculus of gallbladder without cholecystitis without obstruction; Z3A.35 35 weeks gestation of pregnancy
CPT/HCPCS: 36415; 59025; 71275; 76819; 80053; 81001; 82962; 84484; 85025; 93005; 99284; Q9967